=== PATIENT | female | born 1980 | race Hispanic/Latino ===

== ENCOUNTER 2017-07-07 21:12 | Emergency (ER) | payer SELFPAY ==
[2017-07-07 22:55] LABS: HEMATOCRIT 36.3 % (37.0-47.0); HEMOGLOBIN 11.5 g/dl (12.0-16.0); IMMATURE GRANULOCYTES 0.3 % (0.0-1.0); MEAN CELL VOLUME 80.5 fL CALC (80.0-100.0); MEAN CORPUSCULAR HGB 25.5 pG CALC (26.0-32.0); MEAN CORPUSCULAR HGB CONC 31.7 g/L CALC (32.0-36.0); NEUT# 7.58 thou/uL (2.00-7.15); RED BLOOD COUNT 4.51 mill/uL (4.20-5.60); RED CELL DISTRI WIDTH 16.1 % (11.5-15.5)
[2017-07-07 23:03] LABS: ALBUMIN 4.6 g/dL (3.2-5.0); ALKALINE PHOSPHATASE 130 u/l (38-126); ANION GAP 19 (6-22 (CALC)); BILIRUBIN, TOTAL 0.3 mg/dL (0.0-1.4); BUN 6 mg/dL (7-17); BUN/CREATININE RATIO 11 (12-20 (CALC)); CALCIUM 9.9 mg/dL (8.4-10.2); CARBON DIOXIDE 24 mmol/l (22-30); CHLORIDE 101 mmol/l (95-108); CREATININE 0.6 mg/dL (0.5-1.0); GFR > 60 ML/MIN (>=60 (CALC)); GFR FOR AFR.AMER. > 60 ML/MIN (>=60 (CALC)); GLUCOSE 121 mg/dL (65-105); POTASSIUM 3.9 mmol/l (3.5-5.1); SGOT/AST 37 u/l (14-36); SGPT/ALT 32 u/l (9-52); SODIUM 140 mmol/l (137-146); TOTAL PROTEIN 7.9 g/dL (6.3-8.2)
[2017-07-07 23:38] LABS: INFLUENZA A NONE DETECTED (NONE DETECT); INFLUENZA B NONE DETECTED (NONE DETECT)
[2017-07-08 00:35] LABS: URINE BILIRUBIN - DIPSTICK NEGATIVE (NEGATIVE); URINE BLOOD DIPSTICK LARGE (NEGATIVE); URINE COLOR YELLOW; URINE GLUCOSE - DIPSTICK NEGATIVE (NEGATIVE); URINE KETONE NEGATIVE (NEGATIVE); URINE LEUK ESTERASE TRACE (NEGATIVE); URINE NITRITE - DIPSTICK NEGATIVE (Negative); URINE PH 7.5 (4.5-8.0); URINE PROTEIN - DIPSTICK NEGATIVE (NEG-TRACE); URINE SPECIFIC GRAVITY 1.015; URINE UROBILINOGEN - DIPSTICK 0.2 E.U./dL (0.2)
[2017-07-08 00:37] LABS: URINE CLARITY SL CLOUDY
[2017-07-08 00:41] LABS: URINE BACTERIA FEW hpf; URINE SQUAMOUS EPITHELIAL CELL MANY EPI/hpf (0-FEW)
[2017-07-08] MEDS ORDERED: AMOXICILLIN500 MG PO (00:42)
[2017-07-08] MEDS ORDERED: ULTRAM50 M1 PO (00:42)
[2017-07-08] MEDS ORDERED: CIPROFLOXACN500 MG PO (00:43)
[2017-07-08 00:48] VITALS: BP 133/76
== END 2017-07-08 01:05 | disposition home or self-care (01) | DRG 866 ==
LOC: ED 21:12
PROVIDERS: Emergency Medicine
DX: B34.9 Viral infection, unspecified (principal); M79.1 Myalgia; N39.0 Urinary tract infection, site not specified; R50.9 Fever, unspecified

== ENCOUNTER 2019-11-20 18:27 | Emergency (ER) | payer SELFPAY ==
[~2019-11-20] VITALS: Ht 160 cm; Wt 63.0 kg
[~2019-11-20 18:27] MED LIST: AMOXICILLIN500 MG PO; CIPROFLOXACN500 MG PO; ULTRAM50 M1 PO
[2019-11-20 20:37] LABS: HEMATOCRIT 33.6 % (37.0-47.0); HEMOGLOBIN 10.8 g/dl (12.0-16.0); IMMATURE GRANULOCYTES 0.4 % (0.0-5.0); MEAN CORPUSCULAR HGB 23.7 pG CALC (26.0-32.0); MEAN CORPUSCULAR HGB CONC 32.1 g/dL CAL (32.0-36.0); NEUT# 3.44 thou/uL (2.00-7.15); RED BLOOD COUNT 4.55 mill/uL (4.20-5.60); RED CELL DISTRI WIDTH 16.4 % (11.5-15.5)
[2019-11-20 20:56] LABS: ALKALINE PHOSPHATASE 133 u/l (38-126); BUN 6 mg/dL (7-17); BUN/CREATININE RATIO 12 (12-20 (CALC)); CARBON DIOXIDE 24 mmol/l (22-30); CHLORIDE 95 mmol/l (95-108); CREATININE 0.5 mg/dL (0.5-1.0); GFR > 60 ML/MIN (>=60 (CALC)); GFR FOR AFR.AMER. > 60 ML/MIN (>=60 (CALC)); HCG SERUM/URINE (NEG/POS) NEGATIVE (NEGATIVE); LIPASE 49 u/l (23-300); MEAN CELL VOLUME 73.8 fL CALC (80.0-100.0); POTASSIUM 3.9 mmol/l (3.5-5.1); TOTAL PROTEIN 8.9 g/dL (6.3-8.2)
[2019-11-20 20:57] LABS: ANION GAP 16 (6-22 (CALC)); BILIRUBIN, TOTAL 0.7 mg/dL (0.0-1.4); SGOT/AST 85 u/l (14-36); SODIUM 131 mmol/l (137-146)
[2019-11-20 21:01] LABS: URINE BILIRUBIN - DIPSTICK NEGATIVE (NEGATIVE); URINE BLOOD DIPSTICK SMALL (NEGATIVE); URINE COLOR YELLOW; URINE GLUCOSE - DIPSTICK >=1000 mg/dL (NEGATIVE); URINE KETONE NEGATIVE (NEGATIVE); URINE LEUK ESTERASE TRACE (Negative); URINE NITRITE - DIPSTICK NEGATIVE (Negative); URINE PROTEIN - DIPSTICK NEGATIVE (NEG-TRACE); URINE UROBILINOGEN - DIPSTICK 0.2 E.U./dL (0.2)
[2019-11-20 21:02] LABS: URINE CLARITY HAZY
[2019-11-20 21:11] LABS: URINE SQUAMOUS EPITHELIAL CELL FEW EPI/hpf (0-FEW); URINE TRICHOMONAS RARE hpf
[2019-11-20] MEDS ORDERED: AMOXICILLIN500 MG PO (22:15)
[2019-11-20 22:28] VITALS: BP 145/80
== END 2019-11-20 22:33 | disposition home or self-care (01) | DRG 178 ==
LOC: ED 18:27
DX: U07.1 COVID-19 (principal); N39.0 Urinary tract infection, site not specified; E11.9 Type 2 diabetes mellitus without complications

== ENCOUNTER 2021-12-31 18:19 | Emergency (ER) | payer SELFPAY ==
[~2021-12-31] VITALS: Ht 160 cm; Wt 56.8 kg
[2021-12-31 18:40] VITALS: BP 172/87
[2021-12-31 19:00] VITALS: BP 146/88
[2021-12-31] MEDS ORDERED: GENTAMICIN SULF5 ML OS (19:20)
[2021-12-31 19:22] VITALS: BP 146/88
== END 2021-12-31 19:30 | disposition home or self-care (01) | DRG 125 ==
LOC: ED 18:19
DX: H10.9 Unspecified conjunctivitis (principal)

== ENCOUNTER 2022-04-27 16:10 | Emergency (ER) | payer SELFPAY ==
[~2022-04-27] VITALS: Ht 160 cm; Wt 75.0 kg
[~2022-04-27 16:10] MED LIST changes: +GENTAMICIN SULF5 ML OS
[2022-04-27] MEDS ORDERED: BACTRIM DS1 TAB PO (17:44)
[2022-04-27] MEDS ORDERED: CEPHALEXIN500 M1 PO (17:44)
[2022-04-27 18:50] VITALS: BP 136/84
== END 2022-04-27 18:45 | disposition home or self-care (01) | DRG 603 ==
LOC: ED 16:10
DX: L02.01 Cutaneous abscess of face (principal)

== ENCOUNTER 2022-04-28 07:37 | Emergency (ER) | payer SELFPAY ==
[~2022-04-28] VITALS: Ht 160 cm; Wt 59.0 kg
[~2022-04-28 07:37] MED LIST changes: +BACTRIM DS1 TAB PO; +CEPHALEXIN500 M1 PO
[2022-04-28 07:43] VITALS: BP 128/74
[2022-04-28 08:00] VITALS: BP 121/74
[2022-04-28 08:03] VITALS: BP 121/74
== END 2022-04-28 08:10 | disposition home or self-care (01) | DRG 603 ==
LOC: ED 07:37
DX: L02.01 Cutaneous abscess of face (principal)

== ENCOUNTER 2022-08-08 14:44 | Emergency (ER) | payer SELFPAY ==
[~2022-08-08] VITALS: Ht 160 cm; Wt 63.0 kg
[2022-08-08 14:55] VITALS: BP 128/108
[2022-08-08 15:00] VITALS: BP 121/85
[2022-08-08 15:21] LABS: BASO% 0.8 % (0-3); EOS% 1.2 % (0-8); HEMATOCRIT 33.1 % (37.0-47.0); HEMOGLOBIN 10.1 g/dl (12.0-16.0); IMMATURE GRANULOCYTES 0.1 % (0.0-5.0); LYMPH% 18.4 % (15-41); MEAN CELL VOLUME 72.4 fL CALC (80.0-100.0); MEAN CORPUSCULAR HGB 22.1 pG CALC (26.0-32.0); MEAN CORPUSCULAR HGB CONC 30.5 g/dL CAL (32.0-36.0); MONO% 7.8 % (2-13); NEUT# 7.64 thou/uL (2.00-7.15); NEUT% 71.7 % (42-76); RED BLOOD COUNT 4.57 mill/uL (4.20-5.60); RED CELL DISTRI WIDTH 17.8 % (11.5-15.5)
[2022-08-08 15:34] LABS: ALBUMIN 4.3 g/dL (3.2-5.0); ALKALINE PHOSPHATASE 116 u/l (38-126); ANION GAP 15 (6-22 (CALC)); BILIRUBIN, TOTAL 0.6 mg/dL (0.02-1.3); BUN 6 mg/dL (7-17); BUN/CREATININE RATIO 14 (12-20 (CALC)); CARBON DIOXIDE 27 mmol/l (22-30); CHLORIDE 97 mmol/l (95-108); CREATININE 0.4 mg/dL (0.5-1.0); GFR FOR AFR.AMER. > 60 ML/MIN (>=60 (CALC)); GFR OTHER RACES > 60 ML/MIN (>=60 (CALC)); POTASSIUM 4.2 mmol/l (3.5-5.1); SGOT/AST 33 u/l (14-36); SODIUM 135 mmol/l (137-146)
[2022-08-09 02:58] VITALS: BP 142/88
[2022-08-09 03:15] VITALS: BP 142/88
== END 2022-08-09 03:15 | DRG 122 ==
LOC: ED 14:44
PROVIDERS: Family Medicine
DX: H05.011 Cellulitis of right orbit (principal)
CPT/HCPCS: Q9967